=== PATIENT | female | born 1985 | race Caucasian/White ===

== ENCOUNTER 2020-04-01 04:56 | Inpatient (IN) | payer OTHER ==
[2020-04-01] MEDS ORDERED: ceFAZolin 2 GM in Premix Bag 1 BAG IV ONE (05:06)
[2020-04-01] MEDS ORDERED: Tranexamic Acid 1,000 MG in Sodium Chloride 0.9% 100 ML IV PRN ×2 (05:06→08:59)
[2020-04-01] MEDS ORDERED: Carboprost Tromethamine 250 MCG/1 ML Amp IM PRN (05:06)
[2020-04-01] MEDS ORDERED: Lidocaine 1% 50 ML MDV INJECT PRN (05:06)
[2020-04-01] MEDS ORDERED: Water For Irrigation,Sterile 1,000 ML Container IRR PRN (05:06)
[2020-04-01] MEDS ORDERED: Butorphanol 1 MG/ML SDV IVPUSH PRN (05:06)
[2020-04-01] MEDS ORDERED: Misoprostol 200 MCG Tab PO PRN (05:06)
[2020-04-01] MEDS ORDERED: Citric Acid/Sodium Citrate Solution 30 ML Cup PO ONE (05:06)
[2020-04-01] MEDS ORDERED: Ondansetron 4 MG/2 ML SDV IVPUSH PRN ×2 (05:06→08:59)
[2020-04-01] MEDS ORDERED: Methylergonovine 0.2 MG/1 ML Amp IM PRN (05:06)
[2020-04-01] MEDS ORDERED: Nalbuphine 10 MG/1 ML Vial IVPUSH PRN (05:06)
[2020-04-01] MEDS ORDERED: Oxytocin/0.9 % Sodium Chloride 30 UNIT/500 ML BAG IV SCH ×2 (05:15)
[2020-04-01] MEDS ORDERED: Lactated Ringers 1,000 ML IV SCH (05:15)
[2020-04-01] MEDS: Lactated Ringers 1,000 ML IV SCH ×6 (05:30→17:54)
--- NOTE | 2020-04-01 07:30 | PCM.PREANE ---
Preanesthetic Assessment - Anesthesia/Transfusion/Family Hx Anesthesia History: Prior Anesthesia Without Reaction Transfusion History: No Prior Transfusion(s) - Review of Systems General: No Symptoms Pulmonary: No Symptoms Cardiovascular: No Symptoms Gastrointestinal: No Symptoms Neurological: No Symptoms Other: Reports: None - Physical Assessment NPO Status Date: 04/01/20 NPO Status Time: 04:30 (meds with water) Height: 1.75 m Weight: 99.79 kg ASA Class: 2 Mental Status: Alert & Oriented x3 Airway Class: Mallampati = 2 Dentition: Reports: Normal Dentition Thyro-Mental Finger Breadths: 3 Mouth Opening Finger Breadths: 3 ROM/Head Extension: Full Lungs: Clear to Auscultation, Normal Respiratory Effort Cardiovascular: Regular Rate, Regular Rhythm - Lab Values: Laboratory Last Values WBC 8.46 K/uL (4.0-11.0) 04/01/20 05:30 RBC 3.85 M/uL (4.30-5.90) L 04/01/20 05:30 Hgb 12.1 g/dL (12.0-16.0) 04/01/20 05:30 Hct 36.1 % (36.0-46.0) 04/01/20 05:30 MCV 93.8 fL (80.0-98.0) 04/01/20 05:30 MCH 31.4 pg (27.0-32.0) 04/01/20 05:30 MCHC 33.5 g/dL (31.0-37.0) 04/01/20 05:30 RDW Std Deviation 45.5 fl (28.0-62.0) 04/01/20 05:30 RDW Coeff of Luis 13 % (11.0-15.0) 04/01/20 05:30 Plt Count 200 K/uL (150-400) 04/01/20 05:30 MPV 11.00 fL (7.40-12.00) 04/01/20 05:30 Nucleated RBC % 0.0 /100WBC 04/01/20 05:30 Nucleated RBCs # 0 K/uL 04/01/20 05:30 Blood Type AB POSITIVE 04/01/20 05:30 Antibody Screen NEGATIVE 04/01/20 05:30 - Allergies Allergies/Adverse Reactions: Allergies Allergy/AdvReac Type Severity Reaction Status Date / Time nickel Allergy Rash Verified 03/28/20 10:23 - Acknowledgements Anesthesia Type Planned: Spinal (The patient understands and accepts the risks and benefits of spinal anesthesia including failed spinal requiring conversion to a general anesthetic. All questions answered. The patient has signed the consent. 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) Musculoskeletal History: Reports: Other (See Below) Other Musculoskeletal History: bunion left foot Neurological History: Reports: None Psychiatric History: Reports: None Endocrine/Metabolic History: Reports: Hypothyroidism, Obesity/BMI 30+ Hematologic History: Reports: None Immunologic History: Reports: None Oncologic (Cancer) History: Reports: None Dermatologic History: Reports: None - Infectious Disease History Infectious Disease History: Reports: Chicken Pox Other Infectious Disease History: when a child - Past Surgical History Head Surgeries/Procedures: Reports: None HEENT Surgical History: Reports: Oral Surgery, Other (See Below) Other HEENT Surgeries/Procedures: upper and lower jaw surgery, wisdom teeth extracted Cardiovascular Surgical History: Reports: None GI Surgical History: Reports: None Female Surgical History: Reports: Section (x2) Other Musculoskeletal Surgeries/Procedures:: bunionectomy left foot Dermatological Surgical History: Reports: Other (See Below) (left thigh scar from birthmark removal) - SUBSTANCE USE Tobacco Use Status *Q: Never Tobacco User Tobacco Use Within Last Twelve Months: No Second Hand Smoke Exposure: No Recreational Drug Use History: No - HOME MEDS Home Medications: Home Meds Pnv No.95/Ferrous Fum/Folic AC [ Multivitamin Tablet] 1 tab PO DAILY 06/16/17 [History] Calcium Carbonate [Tums] 1 tab PO ASDIRECTED PRN 03/28/20 [History] Cimetidine [Tagamet] 1 tab PO BEDTIME 03/28/20 [History] Labetalol HCl [Labetalol] 100 mg PO BID 03/28/20 [History] Levothyroxine 25 mcg PO DAILY 03/28/20 [History] - CURRENT (IN HOUSE) MEDS Current Meds: Current Medications Butorphanol Tartrate (Stadol) 1 mg IVPUSH Q1H PRN PRN Reason: Pain Carboprost Tromethamine (Hemabate Ds) 250 mcg IM ASDIRECTED PRN PRN Reason: Post Hemorrhage Oxytocin/Sodium Chloride (Oxytocin 30 Unit/500 Ml-Ns) 30 unit in 500 mls @ 999 mls/hr IV TITRATE MANNY Tranexamic Acid 1,000 mg/ (Sodium Chloride) 110 mls @ 660 mls/hr IV ONETIME PRN PRN Reason: Bleeding Lactated Ringer's (Ringers, Lactated) 1,000 mls @ 500 mls/hr IV BOLUS MANNY Last Admin: 04/01/20 06:23 Dose: 500 mls/hr Documented by: Oxytocin/Sodium Chloride (Oxytocin 30 Unit/500 Ml-Ns) 30 unit in 500 mls @ 250 mls/hr IV TITRATE MANNY Lactated Ringer's (Ringers, Lactated) 1,000 mls @ 150 mls/hr IV ASDIRECTED MANNY Cefazolin Sodium/Dextrose 1 gm (/ Premix) 50 mls @ 100 mls/hr IV Q8H MANNY Lidocaine HCl (Xylocaine 1%) 50 ml INJECT ONETIME PRN PRN Reason: Laceration repair Methylergonovine Maleate (Methergine) 0.2 mg IM ASDIRECTED PRN PRN Reason: Post Hemorrhage Misoprostol (Cytotec) 200 mcg PO ONETIME PRN PRN Reason: Post Hemorrhage Nalbuphine HCl (Nubain) 10 mg IVPUSH Q1H PRN PRN Reason: Pain (severe 7-10) Ondansetron HCl (Zofran) 4 mg IVPUSH Q4H PRN PRN Reason: Nausea/Vomiting Sterile Water (Sterile Water For Irrigation) 1,000 ml IRR ASDIRECTED PRN PRN Reason: delivery Discontinued Medications Citric Acid/Sodium Citrate (Bicitra Solution) 30 ml PO ONETIME ONE Stop: 04/01/20 05:07 Cefazolin Sodium/Dextrose 2 gm (/ Premix) 50 mls @ 100 mls/hr IV ONETIME ONE Stop: 04/01/20 05:35
[2020-04-01] MEDS ORDERED: Morphine PF 10 MG/10 ML SDV ONE (07:31)
[2020-04-01] MEDS ORDERED: Octyl 2-Cyanoacrylate 1 Tube ONE (07:33)
[2020-04-01] MEDS ORDERED: ceFAZolin/Dextrose,Iso-Osmotic 2 GM/50 ML Duplex Bag IV ONE (07:48)
[2020-04-01] MEDS ORDERED: Oxytocin 10 Units/1 ML SDV ONE (08:23)
[2020-04-01] MEDS ORDERED: Acetaminophen/oxyCODONE 325-5 MG Tab PO PRN ×2 (08:29→08:59)
[2020-04-01] MEDS ORDERED: Naloxone 0.4 MG/ML Syringe IVPUSH PRN (08:29)
[2020-04-01] MEDS ORDERED: Acetaminophen/HYDROcodone 325-5 MG Tab PO PRN (08:29)
--- NOTE | 2020-04-01 08:29 | PCM.SN.2 ---
- Free Text/Narrative Note: consent signed. patient in sitting position for spinal. back prepped with chlorhexidine. Sterile drape. Spinal done with a sterile technique. 1% lidocaine 3 ml for skin infiltration no paresthesias. 25 gauge pencan needle +paresthesias which resolved once needle was pulled back, +csf, no heme no paresthesias. 0.75% bupivacaine 1.6 ml with duramorph 0.25 mg at 0802. T6 sensory level. patient was able to communicate throughout the entire procedure. 2 attempts.
[2020-04-01] MEDS ORDERED: Ondansetron 4 MG/2 ML SDV ONE (08:34)
[2020-04-01] MEDS ORDERED: Ketorolac 30 MG/ML SDV ONE (08:50)
[2020-04-01] MEDS ORDERED: diphenhydrAMINE 50 MG/ML SDV IVPUSH PRN (08:59)
[2020-04-01] MEDS ORDERED: Lanolin 100% Cream 7 GM Tube TOP PRN (08:59)
[2020-04-01] MEDS ORDERED: Oxytocin 10 Units/1 ML SDV IM PRN (08:59)
[2020-04-01] MEDS ORDERED: Bisacodyl 10 MG Supp RECTAL PRN (08:59)
[2020-04-01] MEDS ORDERED: Misoprostol 200 MCG Tab RECTAL PRN (08:59)
[2020-04-01] MEDS ORDERED: Oxytocin/Lactated Ringers 30 UNIT/500 ML BAG IV SCH (09:00)
--- NOTE | 2020-04-01 09:04 | PCM.OPNOTE ---
- General Post-Op/Procedure Note Date of Surgery/Procedure: 04/01/20 Operative Procedure(s): repeat low transverse Findings: Liveborn female 01/15 3920 grams, normal pelvis Pre Op Diagnosis: 38 weeks gestational hypertension previous declines VTOL Post-Op Diagnosis: Same Anesthesia Technique: Spinal Primary Surgeon: Linn Noble Secondary Surgeon: Sheree Paige Anesthesia Provider: Daysi Dailey Pathology: none Fluid Replacement, Intraop: 3,800 Output, Urine Amount: 200 EBL in mLs: 500 Complications: None Known Condition: Good
--- NOTE | 2020-04-01 10:07 | PCM.POSTAN ---
POST ANESTHESIA ASSESSMENT - MENTAL STATUS Mental Status: Alert, Oriented - RESPIRATORY Respiratory Status: Respiratory Rate WNL, Airway Patent, O2 Saturation Stable - CARDIOVASCULAR CV Status: Pulse Rate WNL, Blood Pressure Stable - GASTROINTESTINAL GI Status: No Symptoms - PAIN Pain Score: 0 - POST OP HYDRATION Hydration Status: Adequate & Stable - OBSERVATIONS Free Text/Narrative:: The patient has no complaints at this time. There were no apparent anesthetic complications at this time. Discharge to floor.
[2020-04-01] MEDS: diphenhydrAMINE 50 MG/ML SDV IVPUSH PRN ×2 (10:37→22:44)
--- NOTE | 2020-04-01 11:46 | OR ---
SURGEON: Linn Noble M.D. DATE OF PROCEDURE: 04/01/2020 PREOPERATIVE DIAGNOSES: 1. 38-week intrauterine . 2. Gestational hypertension. 3. Previous . 4. Declined trial of labor. POSTOPERATIVE DIAGNOSES: 1. 38-week intrauterine . 2. Gestational hypertension. 3. Previous . 4. Declined trial of labor. PROCEDURE: Repeat low-transverse section. PRIMARY SURGEON: Linn Noble MD. SENIOR EXECUTIVE COMPENSATION ANALYST: Sheree Paige MD. ANESTHESIA: Spinal. ESTIMATED BLOOD LOSS: 500 mL. FLUIDS: 3000 mL crystalloid. URINE OUTPUT: 200 mL. FINDINGS: Liveborn female. score of 9 and 9, weighing 3920 g. Normal-appearing uterus, tubes, and ovaries. COMPLICATIONS: None known. DISPOSITION: Mother and baby are in LDR in good condition. BRIEF HISTORY: This is a 34-year-old female, G4, P2-0-1-2. She presents at 38 weeks' gestation for repeat delivery. She had normal blood pressures throughout the until 34 weeks when she developed [id number] elevated blood pressures with negative preeclamptic evaluation, she responded very well to labetalol. She was given betamethasone at 34 weeks' gestation and continued on labetalol with good control of her blood pressures. Due to gestational hypertension requiring medication, a decision was made to proceed with delivery at 38 weeks' gestation. She desired a repeat with risks discussed including bleeding; infection; injury to bowel, bladder, blood vessels or other organs; risk of thromboembolic event; risk of anesthesia. Understanding all these risks, she does desire to proceed. DESCRIPTION OF PROCEDURE: With the patient in left tilt position, under adequate spinal analgesia, the abdomen was prepped with chlorhexidine and draped in usual fashion for abdominal surgery. SCDs were in place. Schulz catheter had been placed, and an appropriate time-out was held. She had received 2 g of Ancef IV. After documentation of adequate analgesia, the prior cicatrix was excised with a scalpel and the incision was carried through the subcutaneous tissue to the fascia which was scored transversely in the midline. Fascial incision was extended laterally using curved Malhotra scissors. The fascia was elevated from the underlying rectus muscles using sharp and blunt dissection. The rectus muscle was bluntly in the midline as the peritoneum was entered with dissection of the fascia, and the Mo O retractor was placed. The visceroperitoneum of the lower uterine segment was slightly dissected downward. Below the field of dissection, a transverse curvilinear incision was made over the lower uterine segment with a scalpel and clear amniotic fluid was noted. The incision was extended using cephalad and caudad traction extending the transverse incision. The head was delivered via the uterine incision without any difficulty and was bulb suctioned by nose and mouth, and after 1 minute, the cord was doubly clamped and cut. The was handed to the nurse in attendance at delivery. The was a liveborn female, score of 9 and 9, weighing 3920 g. Cord blood was collected for cord ABGs as well as routine cord blood sampling. Pitocin was initiated after delivery of the to assist with delivery of the placenta which was delivered by manual extraction as well as fundal massage. The cervix was opened with ring forceps. The uterus was carefully cleaned with a dry laparotomy tape. The uterine incision was closed with a running lock suture of 0 Polysorb, followed by an imbricating layer of 0 Polysorb, followed by multiple interrupted [id number] sutures for complete hemostasis of the venous sinuses that were bleeding at the incision edge. The uterine incision was carefully inspected. It was hemostatic. The tubes and ovaries were inspected, they appeared normal. The pericolic gutters and posterior cul-de-sac were cleaned with a wet laparotomy tape. A final inspection of the incision repair revealed it continued to be completely hemostatic. Therefore, the Mo O retractor was removed. The bladder blade was used for final inspection to confirm hemostasis, which it was, and the rectus muscle and peritoneum were then loosely approximated in the midline using a running mattress suture of 0 Polysorb. The posterior aspect of the fascia was inspected and areas of bleeding that were noted were cauterized. The fascial incision was closed with a running suture of 0 Polysorb. Subcutaneous tissue was irrigated and any areas of bleeding that were noted were cauterized. The skin was closed with a running subcuticular suture of 3-0 Monocryl followed by Dermabond. Final sponge, needle, and instrument counts were reported as correct. There were no complications. Mother and baby were transferred to [facility] in good condition. SHERRILL / ALYSIA /[id number]
--- NOTE | 2020-04-01 13:15 | PCM.SN.2 ---
- Free Text/Narrative Note: S: I was called due to patient experiencing back pain, nurse evaluated patient and then did fundal massage and expressed 500 ml clot, patient then complained of feeling dizzy, she hypotensive for a time, although not tachycardic. Currently she states she feels tired, but has minimal pain and denies palpitations or shortness of breath. O: current BP 105/59 pulse 74 Abdomen soft, nontender, dressing intact. Fundus is firm U-2 unable to express any further clots at this time A/P: 4 hours postop from repeat low transverse with hemorrhage, currently no uterine atony, and no active bleeding. Tranexamic acid given, anesthesia notified and CBC obtains. Pulse is normal and BP improved. Will continue wtih q 15 minute fundal massage, observe for bleeding, proceed as indicated based on CBC
[2020-04-01] MEDS ORDERED: ceFAZolin 1 GM in Premix Bag 1 BAG IV SCH (13:30)
[2020-04-01] MEDS: Ketorolac 30 MG/ML SDV IVPUSH SCH ×2 (15:23→21:22)
[2020-04-01] MEDS: Docusate Sodium 100 MG Cap PO SCH (21:21)
[2020-04-02] MEDS: Ketorolac 30 MG/ML SDV IVPUSH SCH ×3 (03:35→16:58)
--- NOTE | 2020-04-02 07:50 | PCM.PNPP ---
- General Info Date of Service: 04/02/20 Admission Dx/Problem (Free Text): reports minimal lochia except one clot in toilet at about 5:30, Pain well controlled, ambulating and urinating. Denies dizziness, shortness of breath or visual changes. Functional Status: Reports: Pain Controlled, Tolerating Diet, Ambulating, Urinating - Review of Systems General: Reports: No Symptoms HEENT: Reports: No Symptoms Pulmonary: Reports: No Symptoms Cardiovascular: Reports: No Symptoms Gastrointestinal: Reports: No Symptoms Genitourinary: Reports: No Symptoms Musculoskeletal: Reports: No Symptoms Skin: Reports: No Symptoms Neurological: Reports: No Symptoms Psychiatric: Reports: No Symptoms - General Info Date of Service: 04/02/20 - Patient Data Vital Signs - Most Recent: Last Vital Signs Temp 36.6 C 04/02/20 04:00 Pulse 82 04/02/20 07:00 Resp 17 04/02/20 07:00 BP 121/71 04/02/20 04:00 Pulse Ox 95 04/02/20 07:00 Weight - Most Recent: 99.79 kg I&O - Last 24 Hours: Intake & Output 04/01/20 04/02/20 04/02/20 22:59 06:59 14:59 Intake Total 750 800 Output Total 1350 1200 Balance -600 -400 Lab Results - Last 24 Hours: Laboratory Results - last 24 hr 04/01/20 04/01/20 04/02/20 Range/Units 08:18 13:03 05:18 WBC 11.98 H (4.0-11.0) K/uL RBC 3.36 L (4.30-5.90) M/uL Hgb 10.6 L 9.0 L (12.0-16.0) g/dL Hct 31.8 L 27.3 L (36.0-46.0) % MCV 94.6 (80.0-98.0) fL MCH 31.5 (27.0-32.0) pg MCHC 33.3 (31.0-37.0) g/dL RDW Std Deviation 45.5 (28.0-62.0) fl RDW Coeff of Luis 13 (11.0-15.0) % Plt Count 179 (150-400) K/uL MPV 10.50 (7.40-12.00) fL Nucleated RBC % 0.0 /100WBC Nucleated RBCs # 0 K/uL Cord ABG pH 7.316 (7.18-7.38) Cord ABG Base Excess -2 (-10--2) Cord VBG pH 7.356 (7.25-7.45) Cord VBG Base Excess -3 (-10--2) Med Orders - Current: Current Medications Hydrocodone Bitart/Acetaminophen ([place] 325-5 Mg) 2 tab PO Q6H PRN PRN Reason: Pain (moderate 4-6) Bisacodyl (Dulcolax) 10 mg RECTAL ONETIME PRN PRN Reason: Constipation Diphenhydramine HCl (Benadryl) 25 mg IVPUSH Q4H PRN PRN Reason: Itching Stop: 04/02/20 08:29 Last Admin: 04/01/20 22:44 Dose: 25 mg Documented by: Diphenhydramine HCl (Benadryl) 25 mg IVPUSH Q6H PRN PRN Reason: Itching or Nausea Docusate Sodium (Colace) 100 mg PO BID [facility] Last Admin: 04/01/20 21:21 Dose: 100 mg Documented by: Emollient Ointment (Lansinoh Hpa) 0 gm TOP ASDIRECTED PRN PRN Reason: Sore Nipples Lactated Ringer's (Ringers, Lactated) 1,000 mls @ 125 mls/hr IV ASDIRECTED [facility] Last Infusion: 04/01/20 22:43 Dose: Infused Documented by: Oxytocin/Lactated Ringer's (Pitocin In Lr 30 Units/500 Ml) 30 unit in 500 mls @ 999 mls/hr IV TITRATE [facility]; Protocol Tranexamic Acid 1,000 mg/ (Sodium Chloride) 110 mls @ 660 mls/hr IV ONETIME PRN PRN Reason: Bleeding Last Admin: 04/01/20 13:00 Dose: 660 mls/hr Documented by: Ibuprofen (Motrin) 800 mg PO Q8H PRN PRN Reason: mild pain or fever Ketorolac Tromethamine (Toradol) 30 mg IVPUSH Q6H [facility] Stop: 04/02/20 09:01 Last Admin: 04/02/20 03:35 Dose: 30 mg Documented by: Misoprostol (Cytotec) 1,000 mcg RECTAL ONETIME PRN PRN Reason: excessive bleeding Naloxone HCl (Narcan) 0.1 mg IVPUSH ONETIME PRN PRN Reason: Respiratory Depression Stop: 04/02/20 08:30 Ondansetron HCl (Zofran) 4 mg IVPUSH Q4H PRN PRN Reason: Nausea/Vomiting Oxycodone/Acetaminophen (Percocet 325-5 Mg) 1 tab PO ONETIME PRN PRN Reason: Pain (mild 1-3) Oxycodone/Acetaminophen (Percocet 325-5 Mg) 1 tab PO Q4H PRN PRN Reason: Pain (moderate 4-6) Oxycodone/Acetaminophen (Percocet 325-5 Mg) 2 tab PO Q4H PRN PRN Reason: Pain (moderate 4-6) Oxytocin (Pitocin) 10 unit IM ASDIRECTED PRN PRN Reason: Excessive Vaginal Bleeding Discontinued Medications Butorphanol Tartrate (Stadol) 1 mg IVPUSH Q1H PRN PRN Reason: Pain Carboprost Tromethamine (Hemabate Ds) 250 mcg IM ASDIRECTED PRN PRN Reason: Post Hemorrhage Cefazolin Sodium/Dextrose (Ancef) Confirm Administered Dose 2 gm IV .STK-MED ONE Stop: 04/01/20 07:49 Citric Acid/Sodium Citrate (Bicitra Solution) 30 ml PO ONETIME ONE Stop: 04/01/20 05:07 Oxytocin/Sodium Chloride (Oxytocin 30 Unit/500 Ml-Ns) 30 unit in 500 mls @ 999 mls/hr IV TITRATE [facility] Tranexamic Acid 1,000 mg/ (Sodium Chloride) 110 mls @ 660 mls/hr IV ONETIME PRN PRN Reason: Bleeding Lactated Ringer's (Ringers, Lactated) 1,000 mls @ 500 mls/hr IV BOLUS MANNY Last Admin: 04/01/20 07:31 Dose: 500 mls/hr Documented by: Oxytocin/Sodium Chloride (Oxytocin 30 Unit/500 Ml-Ns) 30 unit in 500 mls @ 250 mls/hr IV TITRATE MANNY Cefazolin Sodium/Dextrose 2 gm (/ Premix) 50 mls @ 100 mls/hr IV ONETIME ONE Stop: 04/01/20 05:35 Lactated Ringer's (Ringers, Lactated) 1,000 mls @ 150 mls/hr IV ASDIRECTED MANNY Cefazolin Sodium/Dextrose 1 gm (/ Premix) 50 mls @ 100 mls/hr IV Q8H [facility] Ketorolac Tromethamine (Toradol) Confirm Administered Dose 30 mg .ROUTE .STK-MED ONE Stop: 04/01/20 08:51 Lidocaine HCl (Xylocaine 1%) 50 ml INJECT ONETIME PRN PRN Reason: Laceration repair Methylergonovine Maleate (Methergine) 0.2 mg IM ASDIRECTED PRN PRN Reason: Post Hemorrhage Misoprostol (Cytotec) 200 mcg PO ONETIME PRN PRN Reason: Post Hemorrhage Morphine Sulfate (Duramorph Pf) Confirm Administered Dose 10 mg .ROUTE .STK-MED ONE Stop: 04/01/20 07:32 Nalbuphine HCl (Nubain) 10 mg IVPUSH Q1H PRN PRN Reason: Pain (severe 7-10) Octyl Cyanoacrylate (Dermabond Advance) Confirm Administered Dose 1 applic .ROUTE .STK-MED ONE Stop: 04/01/20 07:34 Ondansetron HCl (Zofran) 4 mg IVPUSH Q4H PRN PRN Reason: Nausea/Vomiting Ondansetron HCl (Zofran) Confirm Administered Dose 4 mg .ROUTE .STK-MED ONE Stop: 04/01/20 08:35 Oxytocin (Pitocin) Confirm Administered Dose 30 unit .ROUTE .STK-MED ONE Stop: 04/01/20 08:24 Sterile Water (Sterile Water For Irrigation) 1,000 ml IRR ASDIRECTED PRN PRN Reason: delivery Tranexamic Acid (Cyklokapron) Confirm Administered Dose 1,000 mg .ROUTE .STK-MED ONE Stop: 04/01/20 12:53 - Interaction Infant Disposition, : Leon in Room with Family Infant Interaction: Holding Feeding: Breastfed ; Nursed Well Support Person: - Recovery Exam Fundal Tone: Firm Fundal Level: 1 Fingerbreadths Below Umbilicus Fundal Placement: Midline Lochia Amount: Small Lochia Color: Rubra/Red Perineum Description: Intact, Minimal Bruising/Swelling Episiotomy/Laceration: None Bladder Status: Voiding Urinary Elimination: Not Voiding, Other (see below) Other Urinary Elimination, : arita catheter removed at 0345 - Exam General: Alert, Oriented Lungs: Normal Respiratory Effort GI/Abdominal Exam: Soft, Non-Tender, No Distention Extremities: Non-Tender. No: No Pedal Edema (trace) Wound/Incisions: Dressing Dry and Intact Neurological: No New Focal Deficit Psy/Mental Status: Alert, Normal Affect, Normal Mood - Problem List & Annotations (1) S/P repeat low transverse SNOMED Code(s): 148262495, [id number], [id number], [id number], [id number] Code(s): Z98.891 - HISTORY OF UTERINE SCAR FROM PREVIOUS SURGERY Status: Acute Current Visit: Yes - Problem List Review Problem List Initiated/Reviewed/Updated: Yes - My Orders Last 24 Hours: My Active Orders 04/01/20 08:59 Patient Status [ADT] Routine Ambulate [RC] PER UNIT ROUTINE Communication Order [RC] PER UNIT ROUTINE Communication Order [RC] PER UNIT ROUTINE Communication Order [RC] Per Unit Routine May Shower [RC] ASDIRECTED RT Incentive Spirometry [RC] Q2HWA Acetaminophen/oxyCODONE [Percocet 325-5 MG] 1 tab PO Q4H PRN Acetaminophen/oxyCODONE [Percocet 325-5 MG] 2 tab PO Q4H PRN Ibuprofen [Motrin] 800 mg PO Q8H PRN Lanolin [Lansinoh HPA] See Dose Instructions TOP ASDIRECTED PRN Ondansetron [Zofran] 4 mg IVPUSH Q4H PRN Oxytocin [Pitocin] 10 unit IM ASDIRECTED PRN Tranexamic Acid [Cyklokapron] 1,000 mg Sodium Chloride 0.9% [Normal Saline] 100 ml IV ONETIME bisacodyL [Dulcolax] 10 mg RECTAL ONETIME PRN diphenhydrAMINE [Benadryl] 25 mg IVPUSH Q6H PRN miSOPROStoL [Cytotec] 1,000 mcg RECTAL ONETIME PRN Abdominal Binder [OM.PC] Urgent Assess Lochia [WOMSER] Per Unit Routine Assess Uterine Involution [WOMSER] Per Unit Routine Breast Pump [WOMSER] Per Unit Routine Peripheral IV Discontinue [OM.PC] Routine Sequential Compression Device [OM.PC] Per Unit Routine Resuscitation Status Routine 04/01/20 09:00 Antiembolic Devices [RC] PER UNIT ROUTINE Intake and Output [RC] Q8H Docusate Sodium [Colace] 100 mg PO BID Ketorolac [Toradol] 30 mg IVPUSH Q6H Lactated Ringers [Ringers, Lactated] 1,000 ml IV ASDIRECTED Oxytocin/Lactated Ringers [Pitocin in LR 30 Units/500 ML] 30 unit in 500 ml IV TITRATE 04/01/20 09:01 Notify Provider Intake and Out [RC] ASDIRECTED Notify Provider Vital Signs [RC] ASDIRECTED 04/01/20 Lunch Regular Diet [DIET] - Assessment Assessment:: POD#1 after repeat , complicated by 500 ml blood loss . Resolved after tranexamic acid. Hemoglobin 9.0 this am. - Plan Plan:: Continue care, ambulate, remove dressing, may have oral pain medication. Rx for pain meds sent today as tomorrow is Thanksgiving. Dr. Paige will round on patient tomorrow.
--- NOTE | 2020-04-02 09:40 | PCM48HPAN ---
Post Anesthesia Note - EVALUATION WITHIN 48HRS OF ANESTHETIC Vital Signs in Normal Range: Yes Patient Participated in Evaluation: Yes Respiratory Function Stable: Yes Airway Patent: Yes Cardiovascular Function Stable: Yes Hydration Status Stable: Yes Pain Control Satisfactory: Yes Nausea and Vomiting Control Satisfactory: Yes Mental Status Recovered: Yes Vital Signs: Last Vital Signs Temp 36.3 C 04/02/20 07:56 Pulse 77 04/02/20 07:56 Resp 18 04/02/20 07:56 BP 114/73 04/02/20 07:56 Pulse Ox 96 04/02/20 07:56 - COMMENTS/OBSERVATIONS Free Text/Narrative:: The patient Alert, oriented, and appears to be in no acute distress. She has no complaints at this time. There were no apparent anesthetic complications at this time. Discharge per primary service.
[2020-04-02] MEDS: Docusate Sodium 100 MG Cap PO SCH ×2 (09:44→21:34)
[2020-04-02] MEDS: Ibuprofen 800 MG Tab PO PRN (17:05)
[2020-04-03] MEDS: Acetaminophen/oxyCODONE 325-5 MG Tab PO PRN ×3 (00:18→11:14)
--- NOTE | 2020-04-03 06:39 | PCM.PNPP ---
- General Info Date of Service: 04/03/20 Admission Dx/Problem (Free Text): 34yo s/p POD 2, normal lochia Functional Status: Reports: Pain Controlled, Tolerating Diet, Ambulating, Urinating - Review of Systems General: Reports: No Symptoms HEENT: Reports: No Symptoms Pulmonary: Reports: No Symptoms Cardiovascular: Reports: No Symptoms Gastrointestinal: Reports: No Symptoms Genitourinary: Reports: No Symptoms Musculoskeletal: Reports: No Symptoms Skin: Reports: No Symptoms Neurological: Reports: No Symptoms Psychiatric: Reports: No Symptoms - General Info Date of Service: 04/03/20 - Patient Data Vital Signs - Most Recent: Last Vital Signs Temp 36.4 C 04/03/20 04:00 Pulse 77 04/03/20 04:00 Resp 14 04/03/20 04:00 BP 127/68 04/03/20 04:00 Pulse Ox 97 04/03/20 04:00 Weight - Most Recent: 99.79 kg I&O - Last 24 Hours: Intake & Output 04/02/20 04/02/20 04/03/20 14:59 22:59 06:59 Output Total 400 Balance -400 Lab Results - Last 24 Hours: Laboratory Results - last 24 hr 04/01/20 Range/Units 05:30 RPR Non-Reac (Non-Reac) Med Orders - Current: Current Medications Hydrocodone Bitart/Acetaminophen ([place] 325-5 Mg) 2 tab PO Q6H PRN PRN Reason: Pain (moderate 4-6) Bisacodyl (Dulcolax) 10 mg RECTAL ONETIME PRN PRN Reason: Constipation Diphenhydramine HCl (Benadryl) 25 mg IVPUSH Q6H PRN PRN Reason: Itching or Nausea Last Admin: 04/02/20 13:26 Dose: 25 mg Documented by: Docusate Sodium (Colace) 100 mg PO BID MANNY Last Admin: 04/02/20 21:34 Dose: 100 mg Documented by: Emollient Ointment (Lansinoh Hpa) 0 gm TOP ASDIRECTED PRN PRN Reason: Sore Nipples Lactated Ringer's (Ringers, Lactated) 1,000 mls @ 125 mls/hr IV ASDIRECTED MANNY Last Infusion: 04/01/20 22:43 Dose: Infused Documented by: Oxytocin/Lactated Ringer's (Pitocin In Lr 30 Units/500 Ml) 30 unit in 500 mls @ 999 mls/hr IV TITRATE MANNY; Protocol Tranexamic Acid 1,000 mg/ (Sodium Chloride) 110 mls @ 660 mls/hr IV ONETIME PRN PRN Reason: Bleeding Last Admin: 04/01/20 13:00 Dose: 660 mls/hr Documented by: Ibuprofen (Motrin) 800 mg PO Q8H PRN PRN Reason: mild pain or fever Last Admin: 04/02/20 17:05 Dose: 800 mg Documented by: Levothyroxine Sodium (Levothyroxine) 25 mcg PO ACBREAKFAST MANNY Last Admin: 04/03/20 06:32 Dose: 25 mcg Documented by: Misoprostol (Cytotec) 1,000 mcg RECTAL ONETIME PRN PRN Reason: excessive bleeding Ondansetron HCl (Zofran) 4 mg IVPUSH Q4H PRN PRN Reason: Nausea/Vomiting Oxycodone/Acetaminophen (Percocet 325-5 Mg) 1 tab PO ONETIME PRN PRN Reason: Pain (mild 1-3) Oxycodone/Acetaminophen (Percocet 325-5 Mg) 1 tab PO Q4H PRN PRN Reason: Pain (moderate 4-6) Oxycodone/Acetaminophen (Percocet 325-5 Mg) 2 tab PO Q4H PRN PRN Reason: Pain (moderate 4-6) Last Admin: 04/03/20 06:32 Dose: 2 tab Documented by: Oxytocin (Pitocin) 10 unit IM ASDIRECTED PRN PRN Reason: Excessive Vaginal Bleeding Discontinued Medications Butorphanol Tartrate (Stadol) 1 mg IVPUSH Q1H PRN PRN Reason: Pain Carboprost Tromethamine (Hemabate Ds) 250 mcg IM ASDIRECTED PRN PRN Reason: Post Hemorrhage Cefazolin Sodium/Dextrose (Ancef) Confirm Administered Dose 2 gm IV .STK-MED ONE Stop: 04/01/20 07:49 Citric Acid/Sodium Citrate (Bicitra Solution) 30 ml PO ONETIME ONE Stop: 04/01/20 05:07 Diphenhydramine HCl (Benadryl) 25 mg IVPUSH Q4H PRN PRN Reason: Itching Stop: 04/02/20 08:29 Last Admin: 04/01/20 22:44 Dose: 25 mg Documented by: Oxytocin/Sodium Chloride (Oxytocin 30 Unit/500 Ml-Ns) 30 unit in 500 mls @ 999 mls/hr IV TITRATE [facility] Tranexamic Acid 1,000 mg/ (Sodium Chloride) 110 mls @ 660 mls/hr IV ONETIME PRN PRN Reason: Bleeding Lactated Ringer's (Ringers, Lactated) 1,000 mls @ 500 mls/hr IV BOLUS [facility] Last Admin: 04/01/20 07:31 Dose: 500 mls/hr Documented by: Oxytocin/Sodium Chloride (Oxytocin 30 Unit/500 Ml-Ns) 30 unit in 500 mls @ 250 mls/hr IV TITRATE MANNY Cefazolin Sodium/Dextrose 2 gm (/ Premix) 50 mls @ 100 mls/hr IV ONETIME ONE Stop: 04/01/20 05:35 Lactated Ringer's (Ringers, Lactated) 1,000 mls @ 150 mls/hr IV ASDIRECTED [facility] Cefazolin Sodium/Dextrose 1 gm (/ Premix) 50 mls @ 100 mls/hr IV Q8H [facility] Ketorolac Tromethamine (Toradol) Confirm Administered Dose 30 mg .ROUTE .STK-MED ONE Stop: 04/01/20 08:51 Ketorolac Tromethamine (Toradol) 30 mg IVPUSH Q6H [facility] Stop: 04/02/20 09:01 Last Admin: 04/02/20 16:58 Dose: Not Given Documented by: Lidocaine HCl (Xylocaine 1%) 50 ml INJECT ONETIME PRN PRN Reason: Laceration repair Methylergonovine Maleate (Methergine) 0.2 mg IM ASDIRECTED PRN PRN Reason: Post Hemorrhage Misoprostol (Cytotec) 200 mcg PO ONETIME PRN PRN Reason: Post Hemorrhage Morphine Sulfate (Duramorph Pf) Confirm Administered Dose 10 mg .ROUTE .STK-MED ONE Stop: 04/01/20 07:32 Nalbuphine HCl (Nubain) 10 mg IVPUSH Q1H PRN PRN Reason: Pain (severe 7-10) Naloxone HCl (Narcan) 0.1 mg IVPUSH ONETIME PRN PRN Reason: Respiratory Depression Stop: 04/02/20 08:30 Octyl Cyanoacrylate (Dermabond Advance) Confirm Administered Dose 1 applic .ROUTE .STK-MED ONE Stop: 04/01/20 07:34 Ondansetron HCl (Zofran) 4 mg IVPUSH Q4H PRN PRN Reason: Nausea/Vomiting Ondansetron HCl (Zofran) Confirm Administered Dose 4 mg .ROUTE .STK-MED ONE Stop: 04/01/20 08:35 Oxytocin (Pitocin) Confirm Administered Dose 30 unit .ROUTE .STK-MED ONE Stop: 04/01/20 08:24 Sterile Water (Sterile Water For Irrigation) 1,000 ml IRR ASDIRECTED PRN PRN Reason: delivery Tranexamic Acid (Cyklokapron) Confirm Administered Dose 1,000 mg .ROUTE .STK-MED ONE Stop: 04/01/20 12:53 - Infant Interaction Infant Disposition, : [place] in Room with Family Infant Interaction: Holding Infant Feeding: Breastfed ; Nursed Well Support Person: - Recovery Exam Fundal Tone: Firm Fundal Level: 1 Fingerbreadths Below Umbilicus Fundal Placement: Midline Lochia Amount: Scant Lochia Color: Rubra/Red Perineum Description: Intact, Minimal Bruising/Swelling Episiotomy/Laceration: None Bladder Status: Voiding Urinary Elimination: Not Voiding, Other (see below) Other Urinary Elimination, : arita catheter removed at 0345 - Exam General: Alert HEENT: Pupils Equal Neck: Supple Lungs: Clear to Auscultation Cardiovascular: Regular Rate, Regular Rhythm GI/Abdominal Exam: Normal Bowel Sounds Extremities: Normal Inspection Skin: Dry Wound/Incisions: Healing Well, Dressing Dry and Intact Neurological: No New Focal Deficit - Problem List & Annotations (1) delivery delivered SNOMED Code(s): 580380452 Code(s): O82 - ENCOUNTER FOR DELIVERY WITHOUT INDICATION Status: Acute Current Visit: Yes - Problem List Review Problem List Initiated/Reviewed/Updated: No - My Orders Last 24 Hours: My Active Orders 04/03/20 07:30 Levothyroxine 25 mcg PO ACBREAKFAST - Assessment Assessment:: 34yo s/p POD2 , stable , Normal lochia , tolerating regular diet - Plan Plan:: Continue care Discharge home today .
[2020-04-03] MEDS ORDERED: Levothyroxine 25 MCG Tab PO SCH (07:30)
[2020-04-03] MEDS: Ibuprofen 800 MG Tab PO PRN (09:17)
[2020-04-03] MEDS: Docusate Sodium 100 MG Cap PO SCH (09:17)
== END 2020-04-03 13:10 | disposition home or self-care (01) | DRG 788 ==
LOC: MW.OB 04:56
PROVIDERS: ADMIT Obstetrics & Gynecology; ATTEND Obstetrics & Gynecology
PROC: 10D00Z1 Extraction of Products of Conception, Low, Open Approach (ICD-10-PCS; principal; 2020-04-01)
PROC: 3E0R3BZ Introduction of Anesthetic Agent into Spinal Canal, Percutaneous Approach (ICD-10-PCS; 2020-04-01)
DX: O34.211 Maternal care for low transverse scar from previous cesarean delivery (principal); O13.4 Gestational [pregnancy-induced] hypertension without significant proteinuria, complicating childbirth; Z37.0 Single live birth; Z3A.38 38 weeks gestation of pregnancy
CPT/HCPCS: 01961; 36415; 59025; 82803; 85014; 85018; 85027; 86592; 86850; 86900; 86901; A9270-GY; J0690; J1200; J1885; J2270; J2405; J2590; J7120